=== PATIENT | female | born 1985 | race Caucasian/White ===

== ENCOUNTER 2016-12-12 23:56 | Emergency (ER) | payer MEDICAID ==
[~2016-12-12] VITALS: Ht 160 cm; Wt 72.2 kg
[2016-12-12 23:59] VITALS: BP 124/84
[2016-12-13] MEDS ORDERED: ONDANSETRON ODT 4 MG ONE (00:25)
[2016-12-13] MEDS ORDERED: ONDANSETRON ODT 4 MG PO ONE (00:30)
== END 2016-12-13 02:11 | disposition home or self-care (01) ==
LOC: ED 12-13 02:06
DX: M25.512 Pain in left shoulder (principal); M62.838 Other muscle spasm; Z87.891 Personal history of nicotine dependence
CPT/HCPCS: 73030; 99284; Q0162

== ENCOUNTER 2017-05-09 21:57 | Emergency (ER) | payer MEDICAID ==
[~2017-05-09] VITALS: Ht 160 cm; Wt 68.0 kg
[2017-05-09] MEDS ORDERED: FAMOTIDINE 20 MG TABLET PO ONE (22:30)
[2017-05-09] MEDS ORDERED: FAMOTIDINE 20 MG TABLET ONE (22:36)
[2017-05-09 23:38] VITALS: BP 121/78
== END 2017-05-09 23:40 | disposition home or self-care (01) ==
LOC: ED 23:30
DX: T78.1XXA Other adverse food reactions, not elsewhere classified, initial encounter (principal); J45.909 Unspecified asthma, uncomplicated; Z90.49 Acquired absence of other specified parts of digestive tract; X58.XXXA Exposure to other specified factors, initial encounter
CPT/HCPCS: 93005; 99283; J7512

== ENCOUNTER 2017-09-29 14:36 | Emergency (ER) | payer SELFPAY ==
[~2017-09-29] VITALS: Ht 160 cm; Wt 70.3 kg
[2017-09-29 15:48] LABS: BASOPHILS # (AUTO) 0.08 x10^3/uL (0-0.1); BASOPHILS % (AUTO) 1 % (0-1); EOSINOPHILS # (AUTO) 0.02 x10^3/uL (0-0.4); EOSINOPHILS % (AUTO) 0 % (1-7); LYMPHOCYTES % (AUTO) 25 % (22-44); MD NO; MEAN CORPUSCULAR HGB CONC 33.2 g/dL (32.4-35.8); MEAN CORPUSCULAR VOLUME 87.6 fL (80-100); MEAN PLATELET VOLUME 9.2 fL (7.4-10.4); MONOCYTES # (AUTO) 0.58 x10^3/uL (0.2-0.8); MONOCYTES % (AUTO) 9 % (2-9); NEUTROPHILS # (AUTO) 4.08 x10^3/uL (1.8-6.8); NEUTROPHILS % (AUTO) 64 % (42-75); PLATELET COUNT 318 x10^3/uL (130-400); RED BLOOD COUNT 4.82 x10^6/uL (3.82-5.3); RED CELL DISTRIBUTION WIDTH 13.9 % (9.6-15.2)
[2017-09-29 15:56] LABS: ALANINE AMINOTRANSFERASE 23 U/L (12-78); ALBUMIN 3.7 g/dL (3.4-5.0); ANION GAP 8 mmol/L (5-15); CALCIUM 8.6 mg/dL (8.5-10.1); CHLORIDE 107 mmol/L (98-107); CREATININE 0.71 mg/dL (0.55-1.02)
[2017-09-29 16:01] LABS: ALKALINE PHOSPHATASE 70 U/L (45-117); BILIRUBIN,TOTAL 0.3 mg/dL (0.2-1.0); TOTAL PROTEIN 7.9 g/dL (6.4-8.2)
[2017-09-29] MEDS ORDERED: DIPHENHYDRAMINE 25 MG CAPSULE ONE (18:22)
[2017-09-29] MEDS ORDERED: OXYcodone/APAP 5/325MG TABLET ONE (18:22)
[2017-09-29] MEDS ORDERED: OXYcodone/APAP 5/325MG TABLET PO ONE (18:30)
[2017-09-29] MEDS ORDERED: RHOGAM FROM BLOOD BANK 1 NOTE EA IM/IV ONE (18:30)
[2017-09-29] MEDS ORDERED: DIPHENHYDRAMINE 25 MG CAPSULE PO ONE (18:30)
[2017-09-29 18:39] LABS: MICROSCOPIC AUTO
[2017-09-29 18:44] LABS: CULTURE INDICATED? YES
[2017-09-29 20:03] VITALS: BP 112/69
[2017-09-29 21:00] VITALS: BP 118/72
== END 2017-09-29 20:49 | disposition home or self-care (01) ==
LOC: ED 20:20
DX: O03.9 Complete or unspecified spontaneous abortion without complication (principal); N83.201 Unspecified ovarian cyst, right side; Z90.49 Acquired absence of other specified parts of digestive tract; J45.909 Unspecified asthma, uncomplicated; Z72.0 Tobacco use
CPT/HCPCS: 36415; 36430; 76830; 80053; 81001; 84703; 85025; 86850; 86900; 87086; 99285; J2790; Q0163; 86901

== ENCOUNTER 2017-11-11 04:50 | Emergency (ER) | payer BC, OTHER ==
[~2017-11-11] VITALS: Ht 160 cm; Wt 71.3 kg
[2017-11-11 04:53] VITALS: BP 124/84
[2017-11-11] MEDS ORDERED: METOCLOPRAMIDE 5 MG/ML, 2ML ONE (05:27)
[2017-11-11] MEDS ORDERED: DIPHENHYDRAMINE 50 MG/ML, 1ML ONE (05:27)
[2017-11-11] MEDS ORDERED: ACETAMINOPHEN 325 MG TABLET ONE (05:27)
[2017-11-11] MEDS ORDERED: SODIUM CHLORIDE 0.9% 1,000ML IVBOLUS ONE (05:30)
[2017-11-11] MEDS ORDERED: DIPHENHYDRAMINE 50 MG/ML, 1ML IVPush ONE (05:30)
[2017-11-11] MEDS ORDERED: ACETAMINOPHEN 325 MG TABLET PO ONE (05:30)
[2017-11-11] MEDS ORDERED: METOCLOPRAMIDE 5 MG/ML, 2ML IVPush ONE (05:30)
== END 2017-11-11 06:22 | disposition home or self-care (01) ==
LOC: ED 05:58
DX: R51 Headache (principal); J45.909 Unspecified asthma, uncomplicated
CPT/HCPCS: 96361; 96374; 96375; 99284; J1200; J2765; J7030

== ENCOUNTER 2017-11-24 19:16 | Emergency (ER) | payer OTHER ==
[~2017-11-24] VITALS: Ht 160 cm; Wt 70.0 kg
[2017-11-24 20:09] LABS: BASOPHILS # (AUTO) 0.03 x10^3/uL (0-0.1); BASOPHILS % (AUTO) 0 % (0-1); EOSINOPHILS # (AUTO) 0.03 x10^3/uL (0-0.4); EOSINOPHILS % (AUTO) 0 % (1-7); LYMPHOCYTES # (AUTO) 1.66 x10^3/uL (1-3.4); LYMPHOCYTES % (AUTO) 19 % (22-44); MD NO; MEAN CORPUSCULAR HEMOGLOBIN 29.4 pg (27.0-34.8); MEAN CORPUSCULAR HGB CONC 33.5 g/dL (32.4-35.8); MEAN CORPUSCULAR VOLUME 87.7 fL (80-100); MEAN PLATELET VOLUME 8.8 fL (7.4-10.4); MONOCYTES # (AUTO) 0.61 x10^3/uL (0.2-0.8); MONOCYTES % (AUTO) 7 % (2-9); NEUTROPHILS % (AUTO) 73 % (42-75); PLATELET COUNT 360 x10^3/uL (130-400); RED BLOOD COUNT 4.41 x10^6/uL (3.82-5.3)
[2017-11-24 20:19] LABS: ALANINE AMINOTRANSFERASE 24 U/L (12-78); ALBUMIN 3.5 g/dL (3.4-5.0); ANION GAP 5 mmol/L (5-15); CALCIUM 8.8 mg/dL (8.5-10.1); CHLORIDE 105 mmol/L (98-107); CREATININE 0.67 mg/dL (0.55-1.02)
[2017-11-24] MEDS ORDERED: IBUPROFEN 200 MG TABLET ONE (20:21)
[2017-11-24 20:22] LABS: ALKALINE PHOSPHATASE 76 U/L (45-117); BILIRUBIN,TOTAL 0.2 mg/dL (0.2-1.0); TOTAL PROTEIN 7.9 g/dL (6.4-8.2)
[2017-11-24 20:24] VITALS: BP 118/77
[2017-11-24] MEDS ORDERED: IBUPROFEN 200 MG TABLET PO ONE (20:30)
== END 2017-11-24 21:22 | disposition home or self-care (01) ==
LOC: ED 21:16
DX: S29.011A Strain of muscle and tendon of front wall of thorax, initial encounter (principal); W19.XXXA Unspecified fall, initial encounter; Y93.89 Activity, other specified; Y92.89 Other specified places as the place of occurrence of the external cause; Y99.8 Other external cause status
CPT/HCPCS: 36415; 71046; 80053; 83690; 85025; 99285

== ENCOUNTER 2018-01-18 22:05 | Emergency (ER) | payer OTHER ==
[~2018-01-18] VITALS: Ht 160 cm; Wt 69.5 kg
[2018-01-18 22:12] VITALS: BP 110/71
[2018-01-18] MEDS ORDERED: DIPHENHYDRAMINE 50 MG/ML, 1ML IVPush ONE (23:30)
[2018-01-18] MEDS ORDERED: METOCLOPRAMIDE 5 MG/ML, 2ML IVPush ONE (23:30)
[2018-01-18] MEDS ORDERED: SODIUM CHLORIDE FLUSH 10ML SYR IVF ONE (23:30)
[2018-01-18] MEDS ORDERED: ACETAMINOPHEN 500 MG TABLET PO ONE (23:30)
[2018-01-18] MEDS ORDERED: SODIUM CHLORIDE 0.9% 1,000ML IVBOLUS ONE (23:30)
[2018-01-18 23:36] LABS: MICROSCOPIC NOT IND
[2018-01-18 23:38] LABS: CULTURE INDICATED? NO
[2018-01-18] MEDS ORDERED: DIPHENHYDRAMINE 50 MG/ML, 1ML ONE (23:48)
[2018-01-18] MEDS ORDERED: ACETAMINOPHEN 500 MG TABLET ONE (23:48)
[2018-01-18] MEDS ORDERED: METOCLOPRAMIDE 5 MG/ML, 2ML ONE (23:48)
[2018-01-18 23:56] LABS: BASOPHILS # (AUTO) 0.02 x10^3/uL (0-0.1); BASOPHILS % (AUTO) 0 % (0-1); EOSINOPHILS # (AUTO) 0.04 x10^3/uL (0-0.4); EOSINOPHILS % (AUTO) 1 % (1-7); LYMPHOCYTES # (AUTO) 1.96 x10^3/uL (1-3.4); LYMPHOCYTES % (AUTO) 24 % (22-44); MD NO; MEAN CORPUSCULAR HEMOGLOBIN 29.7 pg (27.0-34.8); MEAN CORPUSCULAR HGB CONC 33.3 g/dL (32.4-35.8); MEAN CORPUSCULAR VOLUME 89.2 fL (80-100); MEAN PLATELET VOLUME 9.6 fL (7.4-10.4); MONOCYTES # (AUTO) 0.82 x10^3/uL (0.2-0.8); MONOCYTES % (AUTO) 10 % (2-9); NEUTROPHILS # (AUTO) 5.35 x10^3/uL (1.8-6.8); NEUTROPHILS % (AUTO) 65 % (42-75); PLATELET COUNT 269 x10^3/uL (130-400); RED BLOOD COUNT 4.39 x10^6/uL (3.82-5.3); RED CELL DISTRIBUTION WIDTH 13.8 % (9.6-15.2)
[2018-01-19 00:04] LABS: ANION GAP 10 mmol/L (5-15); CALCIUM 9.1 mg/dL (8.5-10.1); CHLORIDE 106 mmol/L (98-107); CREATININE 0.54 mg/dL (0.55-1.02)
== END 2018-01-19 01:16 | disposition home or self-care (01) ==
LOC: ED 23:59
DX: O99.351 Diseases of the nervous system complicating pregnancy, first trimester (principal); G43.109 Migraine with aura, not intractable, without status migrainosus; Z3A.12 12 weeks gestation of pregnancy; Z87.891 Personal history of nicotine dependence; Z90.49 Acquired absence of other specified parts of digestive tract; Z88.1 Allergy status to other antibiotic agents; Z88.5 Allergy status to narcotic agent; Z88.6 Allergy status to analgesic agent; Z88.7 Allergy status to serum and vaccine; Z88.8 Allergy status to other drugs, medicaments and biological substances
CPT/HCPCS: 36415; 80048; 81003; 85025; 93005; 96361; 96374; 96375; 99285; J1200; J2765; J7030